=== PATIENT | female | born 1955 | race Caucasian/White ===

== ENCOUNTER 2019-09-23 12:06 | Emergency (ER) | payer BC ==
--- OUTSIDE RECORDS SUMMARY | 2019-09-23 12:48 | XMS REPORT | Continuity of Care Document ---
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 Onset: 11/17/2011 Benign essential hypertension Litzy Correa M.D. Onset: 11/17/2011 Hyperlipidemia Litzy Correa M.D. Onset: 11/17/2011 Malignant neoplasm of female breast Kasey Madrigal DO Onset: 06/03/2016 Recurrent major depressive episodes Kierra Argueta MD Onset: 07/03/2016 Other abnormal findings in urine Kierra Argueta MD Onset: 07/03/2016 Urinary tract infectious disease Kasey Madrigal DO Onset: 09/25/2016 Pruritus of vulva Kasey Madrigal DO Onset: 03/29/2017 Obesity Kierra Argueta MD Onset: 04/07/2017 Multiple skin tags on neck Kierra Argueta MD Onset: 04/07/2017 Umbilical hernia Marco Wise MD,FACS Onset: 06/30/2017 Candidiasis of skin and nails Kierra Argueta MD Onset: 08/11/2017 Acute sinusitis Kasey Madrigal DO Onset: 01/05/2018 Vitamin D deficiency Kierra Argueta MD Onset: 02/09/2018 Disorder of bursa of shoulder region Lotus Trejo PA Onset: 03/29/2018 Bicipital tenosynovitis Lotus Trejo PA Onset: 03/29/2018 Localized, primary osteoarthritis of the Lotus Trejo PA Onset: 03/29/2018 shoulder region Traumatic tear of rotator cuff Lotus Trejo PA Onset: 04/08/2018 Jaundice Marco Wise MD,FACS Onset: 04/27/2018 Other specified disorders of breast Marco Wise MD,FACS Onset: 07/15/2018 Allergic contact dermatitis due to Kierra Argueta MD Onset: 08/11/2018 adhesive Candidal vulvovaginitis Kierra Argueta MD Onset: 08/11/2018 Tear film insufficiency Kierra Argueta MD Onset: 12/12/2018 Vitamin deficiency Kasey Madrigal DO Onset: 12/12/2018 Mixed hyperlipidemia Kierra Argueta MD Onset: 04/07/2017 Social History Type Date Description Comments Sex Unknown Cigarette Use denies smoking ETOH Use Denies alcohol use Tobacco Use Start: Unknown End: Patient is a former <1/4 ppd x 1 yrs, Unknown smoker quit at age 17 Recreational Drug Use Never Used Drugs Smoking Status Reviewed: 06/12/19 Patient is a former <1/4 ppd x 1 yrs, smoker quit at age 17 Allergies, Adverse Reactions, Alerts Description No Known Drug Allergies Medications Active Medications SIG Qnty Indications Ordering Date Provider [facility] Take One Tablet By 30tabs Kierra Argueta, 12/12/2018 5mg Tablets Mouth Every Morning Nystatin apply to affected 60gm B37.2 Neelfarhat, 08/11/2017 areas 2x/day after DO Kasey [id number]/GM Powder washing and drying well Glipizide ER 1 tab by by mouth 90tabs E11.9 Kierra Argueta, 11/04/2016 5mg 1x/day this is the Tablets ER 24HR correct dose and number, really Freestyle Lite Blood check 1x/day at 1units F33.9 Kierra Argueta, 2015 Glucose Monitoring alternating times MD System E11.9 Device E11.9 Freestyle Lancets check glucose 100units Kendall, 07/03/2016 Misc 1x/day e11.9 MD Kierra Freestyle Lite Test test glu 1x/day 50units E11.9 Kendall, 07/03/2016 Strips dx: e11.9 MD Kierra Anastrozole 1 tabl by mouth 90tabs Kendall, 06/03/2016 1mg Tablets every day MD Kierra Naproxen 1 by mouth twice a 180tabs M25.522 Kendall, 03/25/2015 500mg Tablets day with food or MD Kierra snack as needed Crestor 1 by mouth every 90tabs E78.5 Kendall, 11/10/2013 40mg Tablets day MD Kierra Lisinopril 1 by mouth every 90tabs I10 Kendall, 10/27/2012 5mg Tablets day MD Kierra Hydrochlorothiazide take 1 tablet 90tabs I10 Kendall, 25mg Tablets daily MD Kierra Metformin HCL ER 3 by mouth every 270tabs E11.9 Kendall, 500mg Tablets ER in the morning MD Kierra 24HR Vitamin D 1 by mouth every Unknown 2000Unit Capsules day Silver Sulfadiazine 1 application 85gm Unknown 1% Cream topically twice a day as needed Womens Multivitamin 2 a day Unknown Tablets Systane 1 drop to eyes 4 x Unknown 0.4-0.3% Solution daily as needed History Medications Benadryl Itch apply three times a 30mg Kasey Madrigal, DO 03/13/2019 - Stopping day to affected 06/12/2019 2% Gel area Immunizations CPT Code Status Date Vaccine Lot # [id number] Given 08/11/2018 Influenza Virus Vaccine, Quadrivalent, 36 Mos+, [id number] .[id number] Given 08/11/2017 Influenza Virus Vaccine Quadrivalent Iiv4 [place] [id number] [address] Given 04/15/2017 Zoster Vaccine Live Injection 89635 Given 04/07/2017 Pneumococcal Conjugate Vaccine 13 Valent For [id number] Intramuscular Use 54643 Given 11/04/2016 Influenza Virus Vaccine Split Virus Use For [id number] Individual 3Yr Older [id number] Given 07/29/2015 Influenza Vaccine (Fluzone) Age 3 And Older [id number] 17040 Given 07/23/2014 flu vaccination 41773 Given 11/06/2013 Tdap injection 85038 Given 07/07/2013 flu vaccination 96875 Given 10/27/2012 Pneumovax Injection 66273 Given 10/27/2012 flu vaccination 43472 Given 11/17/2011 flu vaccination Vital Signs Date Vital Result Comment 09/06/2019 8:02am BP Systolic 140 mmHg BP Diastolic 56 mmHg Body Temperature 97.8 F Heart Rate 81 /min Respiratory Rate 18 /min Weight 261.38 lb O2 % BldC Oximetry 96 % Pain Level 5 shoulder and knee 06/12/2019 9:12am BP Systolic Sitting Left Arm 118 mmHg BP Diastolic Sitting Left Arm 72 mmHg Body Temperature 97.7 F Heart Rate 64 /min Respiratory Rate 18 /min Height 62.25 inches 5'2.25" Weight 262.00 lb BMI (Body Mass Index) 47.5 kg/m2 BSA (Body Surface Area) 2.15 m2 [place] body weight in kilograms 50 kg Results Test Acquired Date Facility Test Result H/L Range Note CBC 09/06/2019 [facility] White Blood 8.4 K/uL Normal 3.1-10.7 1 W/Automated [address] [place] [address] [phone] Red Blood Count 4.62 M/uL Normal 3.90-5.40 Hemoglobin 13.3 gm/dL Normal 11.6-15.8 Hematocrit 41.2 % Normal 36.0-46.1 Mean Cell Volume 89.2 fl Normal 80.9-99.0 Mean Corpuscular HGB 28.8 pg Normal 25.9-32.7 Mean Corpuscular HGB Conc 32.3 g/dL Normal 30.8-34.3 Platelet Count 281 K/uL Normal 155-360 Red Cell Distri Width SD 50.2 fl High 36-47 Red Cell Distri Width %CV 15.4 % High 11.7-14.4 Mean Platelet Volume 10.1 fl Normal 8.9-12.4 Neut% 68.1 % Normal 40.4-72.8 Lymph % 19.7 % Low 20.0-42.0 Young % 7.1 % Normal 4.3-13.2 Eo% 3.8 % Normal 0.0-6.6 Bas% 0.4 % Normal 0.0-1.1 Immature Grans 0.9 % Normal 0.0-5.0 NRBC % 0.0 /100WBC < 10/ 100 WBC Neut# 5.75 K/uL Normal 1.8-7.0 Lymph # 1.66 K/uL Normal 1.0-4.0 Young # 0.60 K/uL Normal 0.3-0.9 Eos # 0.32 K/uL Normal 0.0-0.5 Baso # 0.03 K/uL Normal 0.0-0.1 Immature Grans Absolute 0.08 K/uL NRBC # 0.00 K/uL Comprehensive Metabolic 09/06/2019 [facility] Glucose 172 mg/dL High 74-106 Panel [address] [place], [place] [id number] [phone] BUN 21 mg/dL High 7-18 Creatinine 0.8 mg/dL Normal 0.6-1.3 Glom Filtration Rate, Estimate >60 mL/min >60 If >60 mL/min >60 2 BUN/Creat 26.2 ratio Sodium 137 mmol/L Normal 136-145 Potassium 4.0 mmol/L Normal 3.5-5.1 Chloride 107 mmol/L Normal 98-107 Carbon Dioxide 26 mmol/L Normal 21-32 Anion Gap 4 mEq/L Low 8-16 Calcium 8.9 mg/dL Normal 8.5-10.1 Total Protein 7.1 g/dL Normal 6.4-8.2 Albumin 3.9 g/dL Normal 3.4-5.0 Globulin 3.2 g/dL Normal 1.9-4.3 Alb/Glob 1.2 ratio Bilirubin,Total 0.4 mg/dL Normal 0.2-1.0 Sgot/Ast 18 U/L Normal 15-37 SGPT/Alt 23 U/L Normal 12-78 Alkaline Phosphatase 118 U/L High 45-117 Iron-Tibc-%Sat 09/06/2019 [facility] Serum Iron 49 g/dL Low 50-170 [address] [place], [place] [id number] [phone] Total Iron Binding Capacity 379 g/dL Normal 250-450 Transferrin %Saturation 13 % Normal 12-57 Laboratory test 09/06/2019 [facility] Ferritin 31 ng/mL Normal 8-252 finding [address] [place] [address] [phone] Vitamin B12 And 09/06/2019 [facility] Vitamin B12 614 pg/mL Normal 193-986 Folate [address] [place], [place] [id number] [phone] Folic Acid > 20.0 ng/mL High 3.1-17.5 Laboratory test 09/06/2019 [facility] Vitamin 39.4 30.0-100.0 [address] D,25-Hydroxy ng/[place] [address] [phone] Sedimentation Rate 27 mm/hr Normal 2-45 4 Urine Dipstick 06/12/2019 [facility] Ua Leuko - Negative Ua Nitrite - Negative Ua Urobilinogen .2 0.2 - 1.0 E.U./dL Ua Protein - Negative Ua PH 6 Low 6.5-7.5 Ua Blood - Negative Ua Specific [place] 1.020 1.010-1.030 Ua Ketones - Negative Ua Bilirubin - Negative Ua Glucose 3+ High Negative CBS W/Automated 06/09/2019 [facility] White Blood 7.0 K/uL Normal 3.1-10.7 [address] [place] [address] [phone] Red Blood Count 4.45 M/uL Normal 3.90-5.40 Hemoglobin 12.7 gm/dL Normal 11.6-15.8 Hematocrit 38.9 % Normal 36.0-46.1 Mean Cell Volume 87.4 fl Normal 80.9-99.0 Mean Corpuscular HGB 28.5 pg Normal 25.9-32.7 Mean Corpuscular HGB Conc 32.6 g/dL Normal 30.8-34.3 Platelet Count 228 K/uL Normal 155-360 Red Cell Distri Width SD 49.0 fl High 36-47 Red Cell Distri Width %CV 15.4 % High 11.7-14.4 Mean Platelet Volume 10.1 fl Normal 8.9-12.4 Neut% 65.2 % Normal 40.4-72.8 Lymph % 21.7 % Normal 20.0-42.0 Young % 6.8 % Normal 4.3-13.2 Eo% 5.2 % Normal 0.0-6.6 Bas% 0.4 % Normal 0.0-1.1 Immature Grans 0.7 % Normal 0.0-5.0 NRBC % 0.0 /100WBC < 10/ 100 WBC Neut# 4.53 K/uL Normal 1.8-7.0 Lymph # 1.51 K/uL Normal 1.0-4.0 Young # 0.47 K/uL Normal 0.3-0.9 Eos # 0.36 K/uL Normal 0.0-0.5 Baso # 0.03 K/uL Normal 0.0-0.1 Immature Grans Absolute 0.05 K/uL NRBC # 0.00 K/uL Comprehensive Metabolic 06/09/2019 [facility] Glucose 156 mg/dL High 74-106 Panel [address] [place] [address] [phone] BUN 15 mg/dL Normal 7-18 Creatinine 0.8 mg/dL Normal 0.6-1.3 Glom Filtration Rate, Estimate >60 mL/min >60 If >60 mL/min >60 6 BUN/Creat 18.7 ratio Sodium 139 mmol/L Normal 136-145 Potassium 4.0 mmol/L Normal 3.5-5.1 Chloride 106 mmol/L Normal 98-107 Carbon Dioxide 29 mmol/L Normal 21-32 Anion Gap 4 mEq/L Low 8-16 Calcium 9.0 mg/dL Normal 8.5-10.1 Total Protein 6.9 g/dL Normal 6.4-8.2 Albumin 3.7 g/dL Normal 3.4-5.0 Globulin 3.2 g/dL Normal 1.9-4.3 Alb/Glob 1.2 ratio Bilirubin,Total 0.5 mg/dL Normal 0.2-1.0 Sgot/Ast 13 U/L Low 15-37 7 SGPT/Alt 25 U/L Normal 12-78 Alkaline Phosphatase 105 U/L Normal 45-117 Vitamin B12 And 06/09/2019 [facility] Vitamin B12 667 pg/mL Normal 193-986 Folate [address] [place] [address] [phone] Folic Acid > 20.0 ng/mL High 3.1-17.5 Laboratory test 06/09/2019 [facility] Vitamin 44.0 30.0-100.0 8 finding [address],25-Hydroxy ng/[place] [address] [phone] Ferritin 34 ng/mL Normal 8-252 Iron-Tibc-%Sat 06/09/2019 [facility] Serum Iron 52 g/dL Normal 50-170 [address] [place] [address] [phone] Total Iron Binding Capacity 353 g/dL Normal 250-450 Transferrin %Saturation 15 % Normal 12-57 Glycohemoglobin 06/09/2019 [facility] Glycohemoglobin 7.8 % High 4.2-6.3 9 A1c [address] (A1c) [place] [address] [phone] eAG 177 mg/dL 1 C50.912 E11.9 E56.9 2 Note: Persistent reduction for 3 months or more in an eGFR <60 mL/min/1.73 m2 defines CKD. Patients with eGFR values >/=60 mL/min/1.73 m2 may also have CKD if evidence of persistent proteinuria is present. The original MDRD equation for estimated GFR is not valid for patients less than 18 years of age. Additional information may be found at www.kdoqi.org. 3 Vitamin D deficiency has been defined by the [employer] of [employer] and an Endocrine Society practice guideline as a level of serum 25-OH vitamin D less than 20 ng/mL (1,2). The Endocrine Society went on to further define vitamin D insufficiency as a level between 21 and 29 ng/mL (2). 1. IOM ([employer] of [employer]). 2010. Dietary reference intakes for calcium and D. [place]: The National Academies Press. 2. Temo MF, Thanh NC, Sharon REED, et al. Evaluation, treatment, and prevention of vitamin D deficiency: an Endocrine Society clinical practice guideline. JCEM. 2010; 96(7):1911-30. Performed at: RN - [facility] [address] [id number] [employer] Consultant: Tami Freitas MD, Phone: [phone] This result was obtained with an ESR method that is not based on the standard Westergren Method. When comparing results obtained from the traditional Westergren ESR and this method it is important to refer to the reference range for each method. Method: Capillary Photometry 5 C50.912 R17 E11.9 6 Note: Persistent reduction for 3 months or more in an eGFR <60 mL/min/1.73 m2 defines CKD. Patients with eGFR values >/=60 mL/min/1.73 m2 may also have CKD if evidence of persistent proteinuria is present. The original MDRD equation for estimated GFR is not valid for patients less than 18 years of age. Additional information may be found at www.kdoqi.org. 7 Values below the stated reference ranges of AST and ALT can be seen in normal populations. Clinical correlation is suggested. 8 Vitamin D deficiency has been defined by the [employer] and an Endocrine Society practice guideline as a level of serum 25-OH vitamin D less than 20 ng/mL (1,2). The Endocrine Society went on to further define vitamin D insufficiency as a level between 21 and 29 ng/mL (2). 1. IOM ([employer] of [employer]). 2010. Dietary reference intakes for calcium and D. [place]: The National Academies Press. 2. eTmo MF, Thanh RIGGS, Sharon REED, et al. Evaluation, treatment, and prevention of vitamin D deficiency: an Endocrine Society clinical practice guideline. JCEM. 2010; 96(7):1911-30. Performed at: RN - [facility] [address] [id number] [employer] Consultant: Tami Freitas MD, Phone: [phone] 9 Elevated levels of HbA1c suggest the need for more aggressive treatment of glycemia. The [place] [employer] recommends that a primary goal of therapy should be a HbA1c of <7% and that physicians should re-evaluate the treatment regimen in patients with HbA1c values consistently >8%. Procedures Date Code Description Status 08/11/2018 262537875 Diabetic Foot Exam Completed 04/16/2018 46279571 Mammogram Completed 04/07/2017 475766873 Bone Mineral Density Test Completed Medical Devices Description No Information Available Encounters Type Date Location Provider Dx Diagnosis Office Visit 06/12/2019 Family Medicine Kierra Argueta, E11.9 Type 2 diabetes 9:00a Ramy CRUZ MD mellitus without complications C50.912 Malignant neoplasm of unspecified site of left female breast B37.2 Candidiasis of skin and nail Office Visit 06/05/2019 3:00p Oncology Office Rohan, C50.912 Malignant Kasey, DO neoplasm of unspecified site of left female breast E56.9 Vitamin deficiency, unspecified Office Visit 03/13/2019 8:30a Oncology Office Rohan, C50.912 Malignant Kasey, DO neoplasm of unspecified site of left female breast Assessments Date Code Description Provider 09/06/2019 C50.912 Malignant neoplasm of unspecified site of Boufal, Kasey, DO left female breast 09/06/2019 E56.9 Vitamin deficiency, unspecified Boufal, Kasey, DO 09/06/2019 L29.2 Pruritus of vulva Boufal, Kasey, DO 06/12/2019 E11.9 Type 2 diabetes mellitus without Kierra Argueta MD complications 06/12/2019 C50.912 Malignant neoplasm of unspecified site of Kierra Argueta MD left female breast 06/12/2019 B37.2 Candidiasis of skin and nail Kierra Argueta MD 06/09/2019 C50.912 Malignant neoplasm of unspecified site of Boufal, Kasey, DO left female breast 06/09/2019 C50.912 Malignant neoplasm of unspecified site of Oncology Nurse left female breast 06/09/2019 R17 Unspecified jaundice Boufal, Kasey, DO 06/09/2019 R17 Unspecified jaundice Oncology Nurse 06/09/2019 E11.9 Type 2 diabetes mellitus without Boufal, Kasey, DO complications 06/09/2019 E11.9 Type 2 diabetes mellitus without Oncology Nurse complications 06/05/2019 C50.912 Malignant neoplasm of unspecified site of Boufal, Kasey, DO left female breast 06/05/2019 E56.9 Vitamin deficiency, unspecified Boufal, Kasey, DO 03/13/2019 C50.912 Malignant neoplasm of unspecified site of Boufal, Kasey, DO left female breast Plan of Treatment Future Appointment(s):10/20/2019 9:00 am - Kierra Argueta MD at [facility] RD Functional Status Functional Condition Comment Date Status Glasses Active Complete upper dentures Active Mental Status Description No Information Available Referrals Description No Information Available
[2019-09-23 13:11] VITALS: BP 112/57
--- NOTE | 2019-09-23 13:27 | UC ---
Ear Complaint HPI - HPI Summary HPI Summary: Pt presents with c/o worsening nasal congestion, sinus pressure, bilateral ear pain, cough and upper chest congestion, X 8 days. - History of Current Complaint Chief Complaint: UCRespiratory Stated Complaint: SINUS, EAR COMPLAINT Time Seen by Provider: 09/23/19 12:51 Hx Obtained From: Patient ?: No Onset/Duration: Gradual Onset, Lasting Days, Still Present Severity Initially: Mild Severity Currently: Moderate Pain Intensity: 5 Associated Signs/Symptoms: Positive: URI Symptoms - Allergies/Home Medications Allergies/Adverse Reactions: Allergies Allergy/AdvReac Type Severity Reaction Status Date / Time No Known Allergies Allergy Verified 09/23/19 12:54 Home Medications: Home Medications Anastrozole [Arimidex] 1 mg PO DAILY 09/23/19 [History Confirmed 09/23/19] Cholecalciferol TAB* [Vitamin D TAB*] 2,000 units PO DAILY 09/23/19 [History Confirmed 09/23/19] Dapagliflozin Propanediol [Farxiga] 5 mg PO DAILY 09/23/19 [History Confirmed ] Hydrochlorothiazide TAB* [Hydrodiuril TAB*] 25 mg PO DAILY 09/23/19 [History Confirmed 09/23/19] Lisinopril TAB* [Prinivil TAB 5 MG*] 5 mg PO DAILY 09/23/19 [History Confirmed 09/23/19] Multivitamin [Multivitamins] 1 cap PO DAILY 09/23/19 [History Confirmed 09/23/19 ] Naproxen [Naproxen 500 mg tab] 500 mg PO BID PRN 09/23/19 [History Confirmed ] Nystatin TOP POWDER* 1 applic TOPICAL BID 09/23/19 [History Confirmed 09/23/19] Propylene Glycol/Peg 400/Pf [Systane Ultra 0.4-0.3% Eye Drp] 1 each OP 09/23/19 [History] Rosuvastatin Calcium [Crestor] 40 mg PO DAILY 09/23/19 [History Confirmed ] Silver Sulfadiazine 1%* [SILVadine 1%*] 1 applic TOPICAL DAILY PRN 09/23/19 [ History Confirmed 09/23/19] glipiZIDE [Glipizide ER] 5 mg PO DAILY 09/23/19 [History Confirmed 09/23/19] metFORMIN* [Glucophage 500 MG TAB *] 1,500 mg PO DAILY 09/23/19 [History Confirmed 09/23/19] PMH/Surg Hx/FS Hx/Imm Hx Previously Healthy: Yes - Surgical History Surgical History: Yes Surgery Procedure, Year, and Place: left breast lumpectomy. pylonidal cyst - Family History Known Family History: Positive: Cardiac Disease - Social History Occupation: Retired Lives: With Family Alcohol Use: None Substance Use Type: None Smoking Status (MU): Never Smoked Tobacco Have You Smoked in the Last Year: No - Immunization History Vaccination Up to Date: Yes Review of Systems All Other Systems Reviewed And Are Negative: Yes Constitutional: Positive: Chills, Fatigue Skin: Positive: Negative Eyes: Positive: Negative ENT: Positive: Ear Ache, Nasal Discharge, Sinus Congestion Respiratory: Positive: Cough Cardiovascular: Positive: Negative Gastrointestinal: Positive: Negative Genitourinary: Positive: Negative Motor: Positive: Negative Neurovascular: Positive: Negative Musculoskeletal: Positive: Negative Neurological: Positive: Negative Psychological: Positive: Negative Is Patient Immunocompromised?: No Physical Exam Triage Information Reviewed: Yes Appearance: Ill-Appearing Vital Signs: Initial Vital Signs Temp 98 F 09/23/19 13:03 Pulse 71 09/23/19 13:03 Resp 18 09/23/19 13:03 BP 112/57 09/23/19 13:03 Pulse Ox 100 09/23/19 13:03 Vital Signs Reviewed: Yes Eye Exam: Normal ENT: Positive: Nasal congestion, TM bulging, TM red Dental Exam: Normal Neck exam: Normal Respiratory: Positive: No respiratory distress, Wheezing Cardiovascular Exam: Normal Musculoskeletal Exam: Normal Neurological Exam: Normal Psychological Exam: Normal Skin Exam: Normal Ear Complaint Course/Dx - Differential Dx/Diagnosis Differential Diagnosis/HQI/PQRI: Otitis Media, Pharyngitis, URI Provider Diagnosis: Otitis media in diseases classified elsewhere, bilateral Discharge ED - Sign-Out/Discharge Documenting (check all that apply): Patient Departure All imaging exams completed and their final reports reviewed: No Studies - Discharge Plan Condition: Stable Disposition: HOME Prescriptions: Amoxicillin PO (*) [Amoxicillin 875 MG (*)] 875 mg PO Q12H #20 tab Fluconazole 150 MG TAB* [Diflucan 150 MG TAB*] 150 mg PO ONCE #2 tablet Patient Education Materials: Ear Infection (ED) Referrals: Kierra Argueta MD [Primary Care Provider] - If Needed - Billing Disposition and Condition Condition: STABLE Disposition: Home
== END 2019-09-23 13:37 | disposition home or self-care (01) ==
LOC: UCCORT 12:06
DX: H66.93 Otitis media, unspecified, bilateral (principal); J34.89 Other specified disorders of nose and nasal sinuses; R05 Cough; R53.83 Other fatigue
CPT/HCPCS: 99201; G0463

== ENCOUNTER 2019-11-18 13:00 | Emergency (ER) | payer BC ==
--- OUTSIDE RECORDS SUMMARY | 2019-11-18 13:12 | XMS REPORT | Continuity of Care Document ---
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 Problems Active Problems Provider Date Type 2 [...] Vitamin deficiency Kasey Madrigal DO Onset: 12/12/2018 Vitamin B deficiency Kasey Madrigal DO Onset: 09/25/2019 Iron deficiency Kasey Madrigal DO Onset: 09/25/2019 Mixed hyperlipidemia Kierra Argueta MD Onset: 04/07/2017 [...] Medications SIG Qnty Indications Ordering Date Provider [facility] Take One Tablet By 30tabs Kierra Argueta, 12/12/2018 5mg Tablets Mouth Every Morning Nystatin apply to affected 60gm B37.2 Rohan, 08/11/2017 areas 2x/day after DO Kasey [id number]/GM Powder washing and drying well Glipizide ER 1 tab by by mouth 90tabs E11.9 Kierra Argueta, 11/04/2016 5mg 1x/day this is the MD Tablets ER 24HR correct dose and number, really Freestyle Lite Blood check 1x/day at 1units F33.9 Kierra Argueta, 2015 Glucose Monitoring alternating times MD System E11.9 Device E11.9 Freestyle Lancets check glucose 100units Kendall 07/03/2016 Misc 1x/day e11.9 MD Kierra Freestyle [...] x Unknown 0.4-0.3% Solution daily as needed Amoxicillin 1 tab by mouth Unknown 875mg Tablets twice a day Immunizations CPT Code Status Date Vaccine Lot # 11521 Given 08/11/2018 Influenza Virus Vaccine, Quadrivalent, 36 Mos+, [id number] .[id number] 26798 Given 08/11/2017 Influenza Virus Vaccine Quadrivalent Iiv4 [place] [id number] [address] Given 04/15/2017 Zoster Vaccine Live Injection 75474 Given 04/07/2017 Pneumococcal Conjugate Vaccine 13 Valent For [id number] Intramuscular Use 07987 Given 11/04/2016 Influenza Virus Vaccine Split Virus Use For [id number] Individual 3Yr Older Q2038 Given 07/29/2015 Influenza Vaccine (Fluzone) Age 3 And Older [id number] 14138 Given 07/23/2014 flu vaccination 60327 Given 11/06/2013 Tdap injection 64961 Given 07/07/2013 flu vaccination 64224 Given 10/27/2012 Pneumovax Injection 84176 Given 10/27/2012 flu vaccination 73583 Given 11/17/2011 flu vaccination Vital Signs Date Vital Result Comment 09/25/2019 12:28pm BP Systolic 194 mmHg BP Diastolic 62 mmHg Body Temperature 97.9 F Heart Rate 73 /min Respiratory Rate 18 /min Weight 258.25 lb O2 % BldC Oximetry 96 % Pain Level 5 double ear infection. 09/06/2019 8:02am BP Systolic 140 mmHg BP Diastolic 56 mmHg Body Temperature 97.8 F Heart Rate 81 /min Respiratory Rate 18 /min Weight 261.38 lb O2 % BldC Oximetry 96 % Pain Level 5 shoulder and knee Results Test Acquired Date Facility Test Result H/L Range Note CBC 09/06/2019 [facility] White Blood 8.4 K/uL Normal 3.1-10.7 1 W/Automated [address] [place] [address] [phone] Red Blood Count 4.62 M/uL Normal 3.90-5.40 [...] 40.4-72.8 Lymph % 19.7 % Low 20.0-42.0 [place] % 7.1 % Normal 4.3-13.2 Eo% 3.8 % Normal 0.0-6.6 Bas% 0.4 % Normal 0.0-1.1 Immature Grans 0.9 % Normal 0.0-5.0 NRBC % 0.0 /100WBC < 10/ 100 WBC Neut# 5.75 K/uL Normal 1.8-7.0 Lymph # 1.66 K/uL Normal 1.0-4.0 [place] # 0.60 K/uL Normal 0.3-0.9 Eos # 0.32 K/uL Normal 0.0-0.5 Baso # 0.03 K/uL Normal 0.0-0.1 Immature Grans Absolute 0.08 K/uL NRBC # 0.00 K/uL Comprehensive Metabolic 09/06/2019 [facility] Glucose 172 mg/dL High 74-106 Panel [address] [place], [place] [id number] [phone] BUN 21 mg/dL High 7-18 Creatinine 0.8 [...] Phosphatase 118 U/L High 45-117 Iron-Tibc-%Sat 09/06/2019 [facility] Serum Iron 49 g/dL Low 50-170 [address] [place], [place] [id number] [phone] Total Iron Binding Capacity 379 g/dL Normal 250-450 Transferrin %Saturation 13 % Normal 12-57 Laboratory test 09/06/2019 [facility] Ferritin 31 ng/mL Normal 8-252 finding [address] [place], [place] [id number] [phone] Vitamin B12 And 09/06/2019 [facility] Vitamin B12 614 pg/mL Normal 193-986 Folate [address] [place] [address] [phone] Folic Acid > 20.0 ng/mL High 3.1-17.5 Laboratory test 09/06/2019 [facility] Vitamin 39.4 30.0-100.0 [address] D,25-Hydroxy ng/[place] [address] [phone] Sedimentation Rate 27 mm/hr Normal 2-45 4 Urine Dipstick 06/12/2019 [facility] Ua Leuko - Negative Ua Nitrite - Negative Ua Urobilinogen .2 0.2 - 1.0 E.U./dL Ua Protein - Negative Ua PH 6 Low 6.5-7.5 Ua Blood - Negative Ua Specific [place] 1.020 1.010-1.030 Ua Ketones - Negative Ua Bilirubin - Negative Ua Glucose 3+ High Negative CBS W/Automated 06/09/2019 [facility] White Blood 7.0 K/uL Normal 3.1-10.7 [address] [place] [address] [phone] Red Blood Count 4.45 M/uL Normal 3.90-5.40 [...] 40.4-72.8 Lymph % 21.7 % Normal 20.0-42.0 [place] % 6.8 % Normal 4.3-13.2 Eo% 5.2 % Normal 0.0-6.6 Bas% 0.4 % Normal 0.0-1.1 Immature Grans 0.7 % Normal 0.0-5.0 NRBC % 0.0 /100WBC < 10/ 100 WBC Neut# 4.53 K/uL Normal 1.8-7.0 Lymph # 1.51 K/uL Normal 1.0-4.0 [place] # 0.47 K/uL Normal 0.3-0.9 Eos # 0.36 K/uL Normal 0.0-0.5 Baso # 0.03 K/uL Normal 0.0-0.1 Immature Grans Absolute 0.05 K/uL NRBC # 0.00 K/uL Comprehensive Metabolic 06/09/2019 [facility] Glucose 156 mg/dL High 74-106 Panel [address] [place] [address] [phone] BUN 15 mg/dL Normal 7-18 Creatinine 0.8 [...] U/L Normal 45-117 Vitamin B12 And 06/09/2019 [facility] Vitamin B12 667 pg/mL Normal 193-986 Folate [address] [place], [place] [address] [phone] Folic Acid > 20.0 ng/mL High 3.1-17.5 Laboratory test 06/09/2019 [facility] Vitamin 44.0 30.0-100.0 8 finding [address] D,25-Hydroxy ng/[place] [address] [phone] Ferritin 34 ng/mL Normal 8-252 Iron-Tibc-%Sat 06/09/2019 [facility] Serum Iron 52 g/dL Normal 50-170 [address] [place] [address] [phone] Total Iron Binding Capacity 353 g/dL Normal 250-450 Transferrin %Saturation 15 % Normal 12-57 Glycohemoglobin 06/09/2019 [facility] Glycohemoglobin 7.8 % High 4.2-6.3 9 A1c [address] (A1c) [place] [address] [phone] eAG 177 mg/dL 1 C50.912 E11.9 E56.9 [...] D deficiency has been defined by the [place] of [employer] and an Endocrine Society practice guideline as a level of serum 25-OH vitamin D less than 20 ng/mL (1,2). The Endocrine Society went on to further define vitamin D insufficiency as a level between 21 and 29 ng/mL (2). 1. IOM ([place] of [employer]). 2010. Dietary reference intakes for calcium and D. [place]: The National Academies Press. 2. Temo MF, Thanh NC, Beto-Arturo REED, et al. Evaluation, treatment, and prevention of vitamin D deficiency: an Endocrine Society clinical practice guideline. JCEM. 2010; 96(7):1911-30. Performed at: RN - [facility] [address] [id number] Financial Services Specialist: Tami Freitas MD, Phone: [phone] This result was obtained with an [...] D deficiency has been defined by the [place] of [employer] and an Endocrine Society practice guideline as a level of serum 25-OH vitamin D less than 20 ng/mL (1,2). The Endocrine Society went on to further define vitamin D insufficiency as a level between 21 and 29 ng/mL (2). 1. IOM ([place] [employer]). 2010. Dietary reference intakes for calcium and D. [place]: The National AcademVERTILAS Press. 2. Temo MF, Thanh NC, Sharon REED, et al. Evaluation, treatment, and prevention of vitamin D deficiency: an Endocrine Society clinical practice guideline. JCEM. 2010; 96(7):1911-30. Performed at: RN - [facility] [address] [id number] Financial Services Specialist: Tami Freitas MD, Phone: [phone] Elevated levels of HbA1c suggest the need for more aggressive treatment of glycemia. The [place] Diabetes Association recommends that a primary goal of therapy should be a HbA1c of <7% and that physicians should re-evaluate the treatment regimen in patients with HbA1c values consistently >8%. Procedures Date Code Description Status 08/11/2018 [id number] Diabetic Foot Exam Completed 04/16/2018 [id number] Mammogram Completed 04/07/2017 [id number] Bone Mineral Density Test Completed Medical Devices Description No Information Available Encounters Type Date Location Provider Dx Diagnosis Office Visit 09/06/2019 Oncology Office Rohan, C50.912 Malignant neoplasm 8:00a Kasey, DO of unspecified site of left female breast E56.9 Vitamin deficiency, unspecified L29.2 Pruritus vulvae Office Visit 06/12/2019 9:00a Family Medicine Kierra Argueta, E11.9 Type 2 diabetes Ramy CRUZ MD mellitus without complications C50.912 Malignant neoplasm of unspecified site of left female breast B37.2 Candidiasis of skin and nail Office Visit 06/05/2019 3:00p Oncology Office Rohan, C50.912 Malignant Kasey, DO neoplasm of unspecified site of left female breast E56.9 Vitamin deficiency, unspecified Assessments Date Code Description Provider 09/25/2019 C50.912 Malignant neoplasm of unspecified site of Boufal, Kasey, DO left female breast 09/25/2019 E53.9 Vitamin B deficiency, unspecified Boufal, Kasey, DO 09/25/2019 E55.9 Vitamin D deficiency, unspecified Boufal, Kasey, DO 09/25/2019 E61.1 Iron deficiency Boufal, Kasey, DO 09/25/2019 L29.2 Pruritus of vulva Boufal, Kasey, DO 09/25/2019 M19.012 Primary osteoarthritis, left shoulder Boufal, Kasey, DO 09/06/2019 C50.912 Malignant neoplasm of unspecified site [...] E56.9 Vitamin deficiency, unspecified Boufal, Kasey, DO Plan of Treatment Future Appointment(s):01/02/2020 10:30 am - Boufal, Kasey, DO at Oncology [id number]/26/2019 10:30 am - Oncology Nurse at Oncology Xprrio6910/20/2019 9:00 am - Kierra Argueta MD at [facility] [address] Functional Status Functional Condition Comment Date Status Glasses Active Complete upper dentures Active Mental Status Description No Information Available Referrals Description No Information Available
--- OUTSIDE RECORDS SUMMARY | 2019-11-18 13:12 | XMS REPORT | Continuity of Care Document ---
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 Problems Active Problems Provider Date Malignant neoplasm of female breast Kasey Ferris DO Onset: 06/03/2016 Recurrent major depressive episodes Kierra Argueta MD Onset: 07/03/2016 Obesity Kierra Argueta MD Onset: 04/07/2017 Multiple skin tags on neck Kierra Argueta MD Onset: 04/07/2017 Umbilical hernia Marco Wise MD,FACS Onset: 06/30/2017 Vitamin D deficiency Kierra Argueta MD Onset: 02/09/2018 Localized, primary osteoarthritis of the [place] PA Onset: 03/29/2018 shoulder region Tear film insufficiency Kierra Argueta MD Onset: 12/12/2018 Vitamin B deficiency Kasey Ferris DO Onset: 09/25/2019 Iron deficiency Kasey Ferris DO Onset: 09/25/2019 Mixed hyperlipidemia Kierra Argueta MD Onset: 04/07/2017 Hyperlipidemia Kierra Argueta MD Onset: 10/20/2019 Essential hypertension Kierra Argueta MD Onset: 10/20/2019 Type II diabetes mellitus uncontrolled Kierra Argueta MD Onset: 10/20/2019 Pure hypercholesterolemia Kierra Argueta MD Onset: 10/20/2019 Social History Type Date Description Comments Sex Unknown Cigarette Use denies smoking ETOH Use Denies alcohol use Tobacco Use Start: Unknown End: Patient is a former <1/4 ppd x 1 yrs, Unknown smoker quit at age 17 Recreational Drug Use Never Used Drugs Smoking Status Reviewed: 10/20/19 Patient is a former <1/4 ppd x 1 yrs, smoker quit at age 17 Allergies, Adverse Reactions, Alerts Description No Known Drug Allergies Medications Active Medications SIG Qnty Indications Ordering Date Provider Isac 1 by mouth every 90tabs Kierra Argueta, 10/20/2019 10mg Tablets day Fluconazole 1 by mouth once a 30tabs B37.3 Kierra Argueta, 08/11/2018 100mg day for 4d for MD Tablets oli infection Nystatin apply to affected 60gm B37.2 Boufal, 08/11/2017 areas 2x/day after Kasey, [place] [id number]/GM Powder washing and drying well Glipizide ER 1 tab by by mouth 90tabs E11.9 Kierra Argueta, 11/04/2016 5mg 1x/day MD Tablets ER 24HR Freestyle Lite Blood check 1x/day at 1units [...] Tablets daily MD Kierra Metformin HCL ER 2 by mouth every 180tabs E11.9 Kendall, 500mg Tablets ER in the morning MD Kierra 24HR Vitamin D 1 by mouth every Unknown 2000Unit Capsules day Silver Sulfadiazine 1 application 85gm Unknown 1% Cream topically twice a day as needed Womens Multivitamin 2 a day Unknown Tablets Systane 1 drop to eyes 4 x Unknown 0.4-0.3% Solution daily as needed Immunizations CPT Code Status Date Vaccine Lot # 47710 Given 10/20/2019 Influenza High Dose [id number] 07237 Given 08/11/2018 Influenza Virus Vaccine, Quadrivalent, 36 Mos+, [id number] .5ML 25105 Given 08/11/2017 Influenza Virus Vaccine Quadrivalent Iiv4 [place] [id number] [address] Given 04/15/2017 Zoster Vaccine Live Injection 71163 Given 04/07/2017 Pneumococcal Conjugate Vaccine 13 Valent For [id number] Intramuscular Use 42623 Given 11/04/2016 Influenza Virus Vaccine Split Virus Use For [id number] Individual 3Yr Older Q2038 Given 07/29/2015 Influenza Vaccine (Fluzone) Age 3 And Older [id number] 10477 Given 07/23/2014 flu vaccination 79520 Given 11/06/2013 Tdap injection 19557 Given 07/07/2013 flu vaccination 07026 Given 10/27/2012 Pneumovax Injection 89064 Given 10/27/2012 flu vaccination 54234 Given 11/17/2011 flu vaccination Vital Signs Date Vital Result Comment 10/20/2019 9:10am BP Systolic 128 mmHg BP Diastolic 82 mmHg Body Temperature 97.7 F Heart Rate 78 /min Respiratory Rate 16 /min Weight 258.25 lb O2 % BldC Oximetry 98 % 09/25/2019 12:28pm BP Systolic 194 mmHg BP Diastolic 62 mmHg Body Temperature 97.9 F Heart Rate 73 /min Respiratory Rate 18 /min Weight 258.25 lb Pain Level 5 double ear infection. O2 % BldC Oximetry 96 % Results Test Acquired Date Facility Test Result H/L Range Note CBC 09/06/2019 [facility] White Blood 8.4 K/uL Normal 3.1-10.7 1 W/Automated [address] Count Diff [place], [place] [address] [phone] Red Blood Count 4.62 M/uL Normal 3.90-5.40 [...] 40.4-72.8 Lymph % 19.7 % Low 20.0-42.0 [place] % 7.1 % Normal 4.3-13.2 Eo% 3.8 % Normal 0.0-6.6 Bas% 0.4 % Normal 0.0-1.1 Immature Grans 0.9 % Normal 0.0-5.0 NRBC % 0.0 /100WBC < 10/ 100 WBC Neut# 5.75 K/uL Normal 1.8-7.0 Lymph # 1.66 K/uL Normal 1.0-4.0 [place] # 0.60 K/uL Normal 0.3-0.9 Eos # 0.32 K/uL Normal 0.0-0.5 Baso # 0.03 K/uL Normal 0.0-0.1 Immature Grans Absolute 0.08 K/uL NRBC # 0.00 K/uL Comprehensive Metabolic 09/06/2019 [facility] Glucose 172 mg/dL High 74-106 Panel [address] [place] [address] [phone] BUN 21 mg/dL High 7-18 Creatinine 0.8 [...] Phosphatase 118 U/L High 45-117 Iron-Tibc-%Sat 09/06/2019 [facility] Serum Iron 49 g/dL Low 50-170 [address] [place] [address] [phone] Total Iron Binding Capacity 379 g/dL Normal 250-450 Transferrin %Saturation 13 % Normal 12-57 Laboratory test 09/06/2019 [facility] Ferritin 31 ng/mL Normal 8-252 finding [address] [place] [address] [phone] Vitamin B12 And 09/06/2019 [facility] Vitamin B12 614 pg/mL Normal 193-986 Folate [address] [place] [address] [phone] Folic Acid > 20.0 ng/mL High 3.1-17.5 Laboratory test 09/06/2019 [facility] Vitamin 39.4 30.0-100.0 3 finding [address] D,25-Hydroxy ng/[place] [address] [phone] Sedimentation Rate 27 mm/hr Normal 2-45 4 Urine Dipstick 06/12/2019 [facility] Ua Leuko - Negative Ua Nitrite - Negative Ua Urobilinogen .2 0.2 - 1.0 E.U./dL Ua Protein - Negative Ua PH 6 Low 6.5-7.5 Ua Blood - Negative Ua Specific [place] 1.020 1.010-1.030 Ua Ketones - Negative Ua Bilirubin - Negative Ua Glucose 3+ High Negative CBS W/Automated 06/09/2019 [facility] White Blood 7.0 K/uL Normal 3.1-10.7 [address] [place] [address] [phone] Red Blood Count 4.45 M/uL Normal 3.90-5.40 [...] 40.4-72.8 Lymph % 21.7 % Normal 20.0-42.0 [place] % 6.8 % Normal 4.3-13.2 Eo% 5.2 % Normal 0.0-6.6 Bas% 0.4 % Normal 0.0-1.1 Immature Grans 0.7 % Normal 0.0-5.0 NRBC % 0.0 /100WBC < 10/ 100 WBC Neut# 4.53 K/uL Normal 1.8-7.0 Lymph # 1.51 K/uL Normal 1.0-4.0 [place] # 0.47 K/uL Normal 0.3-0.9 Eos # 0.36 K/uL Normal 0.0-0.5 Baso # 0.03 K/uL Normal 0.0-0.1 Immature Grans Absolute 0.05 K/uL NRBC # 0.00 K/uL Comprehensive Metabolic 06/09/2019 [facility] Glucose 156 mg/dL High 74-106 Panel [address] [place] [address] [phone] BUN 15 mg/dL Normal 7-18 Creatinine 0.8 [...] U/L Normal 45-117 Vitamin B12 And 06/09/2019 [facility] Vitamin B12 667 pg/mL Normal 193-986 Folate [address] [place] [address] [phone] Folic Acid > 20.0 ng/mL High 3.1-17.5 Laboratory test 06/09/2019 [facility] Vitamin 44.0 30.0-100.0 [address] D,25-Hydroxy ng/[place] [address] [phone] Ferritin 34 ng/mL Normal 8-252 Iron-Tibc-%Sat 06/09/2019 [facility] Serum Iron 52 g/dL Normal 50-170 [address] [place] [address] [phone] Total Iron Binding Capacity 353 g/dL Normal 250-450 Transferrin %Saturation 15 % Normal 12-57 Glycohemoglobin 06/09/2019 [facility] Glycohemoglobin 7.8 % High 4.2-6.3 9 A1c [address] [facility] (A1c) [place] [address] [phone] eAG 177 mg/dL 1 C50.912 E11.9 E56.9 [...] D deficiency has been defined by the [place] of [employer] and an Endocrine Society practice guideline as a level of serum 25-OH vitamin D less than 20 ng/mL (1,2). The Endocrine Society went on to further define vitamin D insufficiency as a level between 21 and 29 ng/mL (2). 1. IOM ([place] of [employer]). 2010. Dietary reference intakes for calcium and D. [place]: The National Academies Press. 2. Thanh Elizalde, Sharon REED, et al. Evaluation, treatment, and prevention of vitamin D deficiency: an Endocrine Society clinical practice guideline. JCEM. 2010; 96(7):1911-. Performed at: [address] [id number] [employer] Set Up Operator: Tami Freitas MD, Phone: [phone] This result was obtained with an [...] D deficiency has been defined by the [place] of [employer] and an Endocrine Society practice guideline as a level of serum 25-OH vitamin D less than 20 ng/mL (1,2). The Endocrine Society went on to further define vitamin D insufficiency as a level between 21 and 29 ng/mL (2). 1. IOM ([place] of [employer]). 2010. Dietary reference intakes for calcium and D. [place]: The National Academies Press. 2. Thanh Elizalde, Sharon REED, et al. Evaluation, treatment, and prevention of vitamin D deficiency: an Endocrine Society clinical practice guideline. JCEM. 2010; 96(7):1911-30. Performed at: [facility] [id number] [employer] Set Up Operator: Tami Freitas MD, Phone: [phone] Elevated levels of HbA1c suggest the need for more aggressive treatment of glycemia. The [place] Diabetes Association recommends that a primary goal of therapy should be a HbA1c of <7% and that physicians should re-evaluate the treatment regimen in patients with HbA1c values consistently >8%. Procedures Date Code Description Status 08/11/2019 [id number] Diabetic Foot Exam Completed 04/16/2019 [id number] Mammogram Completed 04/07/2019 [id number] Bone Mineral Density Test Completed Medical Devices Description No Information Available Encounters Type Date Location Provider Dx Diagnosis Office Visit 10/20/2019 Family Medicine Kierra Argueta, Z00.00 Encntr for general 9:00a Ramy CRUZ MD adult medical exam w/o abnormal findings E11.65 Type 2 diabetes mellitus with hyperglycemia I10 Essential (primary) hypertension C50.912 Malignant neoplasm of unspecified site of left female breast E78.5 Hyperlipidemia, unspecified L91.8 Other hypertrophic disorders of the skin Office Visit 09/25/2019 12:30p Oncology Office Boufal, C50.912 Malignant Kasey, DO neoplasm of unspecified site of left female breast E53.9 Vitamin B deficiency, unspecified E55.9 Vitamin D deficiency, unspecified E61.1 Iron deficiency M19.012 Primary osteoarthritis, left shoulder Office Visit 09/06/2019 8:00a Oncology Office Boufal, C50.912 Malignant Kasey, DO neoplasm of unspecified site of left female breast E56.9 Vitamin deficiency, unspecified L29.2 Pruritus vulvae Office Visit 06/12/2019 9:00a Family Medicine Kierra Argueta, E11.9 Type 2 diabetes Ramy CRUZ MD mellitus without complications C50.912 Malignant neoplasm of unspecified site of left female breast B37.2 Candidiasis of skin and nail Office Visit 06/05/2019 3:00p Oncology Office Boufal, C50.912 Malignant Kasey, DO neoplasm of unspecified site of left female breast E56.9 Vitamin deficiency, unspecified Assessments Date Code Description Provider 10/20/2019 Z00.00 Encounter for general adult medical Kierra Argueta MD examination without abnormal findings 10/20/2019 E11.65 Type 2 diabetes mellitus with hyperglycemia Kierra Argueta MD 10/20/2019 I10 Essential (primary) hypertension Kierra Argueta MD 10/20/2019 C50.912 Malignant neoplasm of unspecified site of Kierra Argueta MD left female breast 10/20/2019 E78.5 Hyperlipidemia, unspecified Kierra Argueta MD 10/20/2019 L91.8 Other hypertrophic disorders of the skin Kierra Argueta MD 09/25/2019 C50.912 Malignant neoplasm of unspecified site of Boufal, Kasey, DO left female breast 09/25/2019 E53.9 Vitamin B deficiency, unspecified Boufal, Kasey, DO 09/25/2019 E55.9 Vitamin D deficiency, unspecified Boufal, Kasey, DO 09/25/2019 E61.1 Iron deficiency Boufal, Kasey, DO 09/25/2019 M19.012 Primary osteoarthritis, [...] Boufal, Kasey, DO Plan of Treatment Future Appointment(s):02/19/2020 4:00 pm - Kierra [facility]gueta MD at [facility]01/02/2020 10:30 am - Kasey Ferris DO at Oncology [id number] 10:30 am - Oncology Nurse at Oncology [id number]/20/2019 - Kierra Argueta MDZ00.00 Encounter for general adult medical examination without abnormal findingsComments:REGULAR EXERCISE IS IMPORTANT FOR YOU; TRY TO LOSE SOME MORE WEIGHT;DAILY SUNSCREEN OR COVER UP TO AVOID SKIN CANCER;CALCIUM INTAKE IS GOOD; COLON CA SCREENING , LABS, MAMMOGRAM AND BONE DENSITY DATES IN PREVENTIVE SCREEN.IMMUNIZATIONS : FLU SHOT TODAY; I AM CALLING IN SHINKasumi-sou.LABS UP TO DATE EXCEPT WHAT I ORDERED TODAY;HEALTH CARE PROXY IN CHART.ADL'S, IADL'S: YOU ARE SAFE AT HOME. SIGN UP FOR THEPORTAL, THIS IS A GREAT WAY TO SEE YOUR RESULTS, CONTACT ME AND MAKE APPOINTMENTS OR ASK QUESTIONS..E11.65 Type 2 diabetes mellitus with hyperglycemiaComments:AIC AND URINE FOR PROTEIN LOSS ORDERED TODAY.DECREASE METFORMIN TO 500 MG, 2 IN AM;INCREASE FARXIGA TO 10 MG IN AM, CALLED IN;CONTINUE GLIPIZIDE ONCE A DAY.Follow up:4 MOI10 Essential (primary) hypertensionComments:WATCH SALT; CONT. WITH SAME MEDICAL REGIME;REGULAR EXERCISE IS AMARAL.C50.912 Malignant neoplasm of unspecified site of left female breastComments:YOU ARE FOLLOWED CLOSELY BY DR. FERRIS; CONTINUE ANASTROZOLE.E78.5 Hyperlipidemia, unspecifiedComments:CONTINUE SAME DOSE, CHOLESTEROL IS GOOD.WATCH SATURATED FATS AND RED MEAT INTAKE;GET ADEQUATE FIBER IN DIET.L91.8 Other hypertrophic disorders of the skinComments:multiple skin tags; will schedule for electrocautery excisionFollow up:needs appt for multiple skin tag removal, 30 min.AllNew Medication:Farxiga 10 mg - 1 by mouth every day Functional Status Functional Condition Comment Date Status Glasses Active Independent with all ADL's Active Complete upper dentures Active Requires assistance with all IADL's Active Mental Status Description No Information Available Referrals Description No Information Available
[2019-11-18 13:40] VITALS: BP 128/59
--- NOTE | 2019-11-18 13:52 | UC ---
Laceration HPI - HPI Summary HPI Summary: 64 yo female presents with RIGHT pinky laceration. She tells me that just [employer] she was opening a metal can and the tin can sliced her right 5th finger. Bandaged the area and came directly to . States tetanus is UTD. - History Of Current Complaint Chief Complaint: UCLaceration Stated Complaint: RIGHT PINKY LACERATION Time Seen by Provider: 11/18/19 13:52 Hx Obtained From: Patient Laceration Location: Finger Mechanism Of Injury: Sharp Trauma Onset/Duration: Sudden Onset Severity: Mild Pain Intensity: 4 Pain Scale Used: 0-10 Numeric - Allergies/Home Medications Allergies/Adverse Reactions: Allergies Allergy/AdvReac Type Severity Reaction Status Date / Time No Known Allergies Allergy Verified 11/18/19 13:34 PMH/Surg Hx/FS Hx/Imm Hx Endocrine History: Diabetes, Dyslipidemia Cardiovascular History: Hypertension - Surgical History Surgical History: Yes Surgery Procedure, Year, and Place: left breast lumpectomy. pylonidal cyst - Family History Known Family History: Positive: Cardiac Disease - Social History Lives: With Family Alcohol Use: None Substance Use Type: None Smoking Status (MU): Former Smoker Have You Smoked in the Last Year: No When Did the Patient Quit Smoking/Using Tobacco: 1969 - Immunization History Most Recent Tetanus Shot: UTD Vaccination Up to Date: Yes Review of Systems All Other Systems Reviewed And Are Negative: No Constitutional: Positive: Negative Skin: Positive: Other - Right 5th digit laceration Respiratory: Positive: Negative Cardiovascular: Positive: Negative Neurovascular: Positive: Negative Musculoskeletal: Positive: Negative Neurological: Positive: Negative Psychological: Positive: Negative Physical Exam - Summary Physical Exam Summary: GENERAL: NAD. WDWN. No pain distress. SKIN: RIGHT 5th digit: dorsal aspect overlying the PIP there is a 2.0cm flap- like laceration. No bony or tendon involvement appreciated. NECK: Supple. Nontender. No lymphadenopathy. CHEST: No accessory muscle use. Breathing comfortably and in no distress. CV: Pulses intact. Cap refill <2seconds MSK: FROM and strength intact MCP, PIP, and DIP of right 5th digit. NEURO: Alert. PSYCH: Age appropriate behavior. Triage Information Reviewed: Yes Vital Signs: Initial Vital Signs Temp 97.6 F 11/18/19 13:37 Pulse 77 11/18/19 13:37 Resp 17 11/18/19 13:37 BP 128/59 11/18/19 13:37 Pulse Ox 99 11/18/19 13:37 Vital Signs Reviewed: Yes Laceration Repair - Laceration Repair 1 Description: Irregular Laceration Size After Repair: Length (cm) - 2.0 Modified For Repair: No Anesthesia Used: 2.0% Lido Irrigation With Pressure Irrigation Device: Yes Closure Material: Sutures - #7 Closure Method: Single Layer Suture Of: Skin Suture Type: Prolene - 5-0 Laceration Course/Dx - Course/Dx Course Of Treatment: The procedure was explained to the pt and all questions were answered. A time out was performed, witnessed, and signed. The area was irrigated with 200mL sterile saline. 2mL of 2% lidocaine without epi was administered and good anesthetization was achieved. In the usual sterile fashion, SEVEN 5-0 prolene interrupted sutures were placed. Homeostasis achieved. The wound was bandaged with telfa and tubegauze. Pt tolerated procedure well. She was provided with a finger splint to use when she removed the tubegauze in 24-48hrs. Rx for keflex given her finger laceration and diabetes. - Diagnosis Provider Diagnosis: Finger laceration Discharge ED - Sign-Out/Discharge Documenting (check all that apply): Patient Departure All imaging exams completed and their final reports reviewed: No Studies - Discharge Plan Condition: Stable Disposition: HOME Prescriptions: Cephalexin CAP* [Keflex CAP*] 500 mg PO TID #15 cap Patient Education Materials: Finger Laceration (ED) Referrals: Kierra Argueta MD [Primary Care Provider] - Additional Instructions: 1) Please keep the area bandage, clean, dry, and intact for the next 24- 48hours. Then change the bandage daily until sutures are removed. 2) If you develop a fever, colored or thick discharge, increased pain or swelling - please call your PCP or return for a wound check. 3) Please return in 10-12 days to have your SEVEN sutures removed. 4) Use the finger splint as much as possible to keep from bending the finger - Billing Disposition and Condition Condition: STABLE Disposition: Home - Attestation Statements Provider Attestation: Per institutional requirements, I have reviewed the chart, however, I was not consulted specifically or made aware of this patient by the midlevel provider. I did not personally evaluate, interact with, or disposition this patient. EK
[2019-11-18] MEDS ORDERED: Lidocaine 2% PF * 5 ML VIAL INJ ONE (13:55)
== END 2019-11-18 14:56 | disposition home or self-care (01) ==
LOC: UCCORT 13:00
DX: S61.216A Laceration without foreign body of right little finger without damage to nail, initial encounter (principal); W45.8XXA Other foreign body or object entering through skin, initial encounter; Y92.9 Unspecified place or not applicable; E11.9 Type 2 diabetes mellitus without complications; I10 Essential (primary) hypertension; Z87.891 Personal history of nicotine dependence
CPT/HCPCS: 12001; 12002; 99211; G0463

== ENCOUNTER 2019-11-29 10:21 | Emergency (ER) | payer BC ==
[2019-11-29 11:19] VITALS: BP 122/60
--- NOTE | 2019-11-29 11:47 | UC ---
HPI Wound/Suture Re-check - HPI Summary HPI Summary: here for suture removal from the right pinky sutures were placed here 11 days ago has no concerns, no bleeding, no pain, no redness or discharge wound is healing well - History Of Current Complaint Chief Complaint: UCSkin Stated Complaint: STITCH REMOVAL-DONE HERE Time Seen by Provider: 11/29/19 11:19 Hx Obtained From: Patient Onset/Duration: Sudden Onset, Lasting Days - 11, Still Present Severity: Moderate Pain Intensity: 0 Pain Scale Used: 0-10 Numeric Procedure Type: suture removal Surgery Date: 11/18/19 - Allergies/Home Medications Allergies/Adverse Reactions: Allergies Allergy/AdvReac Type Severity Reaction Status Date / Time No Known Allergies Allergy Verified 11/29/19 11:19 PMH/Surg Hx/FS Hx/Imm Hx Endocrine History: Diabetes Cardiovascular History: Hypertension Cancer History: Breast Cancer - Surgical History Surgical History: Yes Surgery Procedure, Year, and Place: left breast lumpectomy. pylonidal cyst - Family History Known Family History: Positive: Cardiac Disease - Social History Alcohol Use: None Substance Use Type: None Smoking Status (MU): Former Smoker Have You Smoked in the Last Year: No When Did the Patient Quit Smoking/Using Tobacco: 1970 - Immunization History Most Recent Tetanus Shot: UTD Vaccination Up to Date: Yes Review of Systems All Other Systems Reviewed And Are Negative: Yes Constitutional: Positive: Negative Is Patient Immunocompromised?: No Physical Exam Triage Information Reviewed: Yes Appearance: Well-Appearing, No Pain Distress, Well-Nourished Vital Signs: Initial Vital Signs Temp 97.4 F 11/29/19 11:14 Pulse 69 11/29/19 11:14 Resp 18 11/29/19 11:14 BP 122/60 11/29/19 11:14 Pulse Ox 100 11/29/19 11:14 Vital Signs Reviewed: Yes Eye Exam: Normal Eyes: Positive: Conjunctiva Clear ENT: Positive: Normal ENT inspection, Hearing grossly normal, Pharynx normal Neck exam: Normal Respiratory: Positive: Chest non-tender, Lungs clear, Normal breath sounds Cardiovascular: Positive: RRR, No Murmur, Pulses Normal Skin: Positive: Other - 2 cm laceration right pinky , sutures are intact, wound is healing well , no erythema, no dischare, to tenderness, sutures were removed Course/Dx - Diagnosis Provider Diagnosis: Visit for suture removal Discharge ED - Sign-Out/Discharge Documenting (check all that apply): Patient Departure All imaging exams completed and their final reports reviewed: No Studies - Discharge Plan Condition: Stable Disposition: HOME Patient Education Materials: Stitches Removal (ED) Referrals: Kierra Argueta MD [Primary Care Provider] - If Needed Additional Instructions: may keep the band aid for 2 more days use antibiotic oint daily after your have removed the band aid follow up as needed - Billing Disposition and Condition Condition: STABLE Disposition: Home
== END 2019-11-29 11:38 | disposition home or self-care (01) ==
LOC: UCCORT 10:21
DX: S61.216D Laceration without foreign body of right little finger without damage to nail, subsequent encounter (principal); E11.9 Type 2 diabetes mellitus without complications; I10 Essential (primary) hypertension; Z85.3 Personal history of malignant neoplasm of breast; Z87.891 Personal history of nicotine dependence; X58.XXXD Exposure to other specified factors, subsequent encounter

== ENCOUNTER 2020-01-06 18:11 | Emergency (ER) | payer BC, OTHER ==
[2020-01-06 19:11] VITALS: BP 135/66
--- NOTE | 2020-01-06 19:49 | UC ---
Knee Pain HPI - HPI Summary HPI Summary: Patient is 64 year old female, who present today to the urgent care with left knee pain for past 3 days. She reports that she was at work and sustained injury at 3:00 in morning , she was coming down the steps and stepped on black ice. Slipped on black ice on 01/03 and twisted left knee. Has continued to work, applying ice. Takes naproxen for pain but took ibuprofen this morning . Wednesday put salonpas on it. Painful with activity. Medial knee pain. Reports associated swelling - History of Current Complaint Chief Complaint: UCLowerExtremity Stated Complaint: LEFT KNEE INJURY (wc) Time Seen by Provider: 01/06/20 19:10 Hx Obtained From: Patient ?: No Pain Intensity: 0 - Allergies/Home Medications Allergies/Adverse Reactions: Allergies Allergy/AdvReac Type Severity Reaction Status Date / Time No Known Allergies Allergy Verified 01/06/20 19:11 Home Medications: Home Medications Anastrozole [Arimidex] 1 mg PO DAILY 09/23/19 [History Confirmed 01/06/20] Cholecalciferol TAB* [Vitamin D TAB*] 2,000 units PO DAILY 09/23/19 [History Confirmed 01/06/20] Dapagliflozin Propanediol [Farxiga] 10 mg PO DAILY 09/23/19 [History Confirmed 01/06/20] Hydrochlorothiazide TAB* [Hydrodiuril TAB*] 25 mg PO DAILY 09/23/19 [History Confirmed 01/06/20] Lisinopril TAB* [Prinivil TAB 5 MG*] 5 mg PO DAILY 09/23/19 [History Confirmed 01/06/20] Multivitamin [Multivitamins] 1 cap PO DAILY 09/23/19 [History Confirmed 01/06/20 ] Naproxen [Naproxen 500 mg tab] 500 mg PO BID PRN 09/23/19 [History Confirmed ] Rosuvastatin Calcium [Crestor] 40 mg PO DAILY 09/23/19 [History Confirmed ] glipiZIDE [Glipizide ER] 5 mg PO DAILY 09/23/19 [History Confirmed 01/06/20] metFORMIN* [Glucophage 500 MG TAB *] 1,000 mg PO DAILY 09/23/19 [History Confirmed 01/06/20] Diclofenac 1% GEL (NF) [Voltaren 1% GEL (NF)] 1 applic TOPICAL BID 7 Days #1 tube 01/06/20 [Rx] Ibuprofen TAB* [Motrin TAB* 400 MG] 400 mg PO Q6H PRN 01/06/20 [History Confirmed 01/06/20] PMH/Surg Hx/FS Hx/Imm Hx - Additional Past Medical History Additional PMH: Past Medical History : Hyperlipidemia, hypertension, diabetes, breast cancer, hepatitis Past Surgical History: Left breast lumpectomy, pilonidal cyst Family History : cardiac disease Social History : no alcohol, former smoker, no drug use. works at [employer]. Previously Healthy: Yes - Surgical History Surgical History: Yes Surgery Procedure, Year, and Place: left breast lumpectomy. pylonidal cyst - Family History Known Family History: Positive: Cardiac Disease - Social History Alcohol Use: None Substance Use Type: None Smoking Status (MU): Former Smoker Have You Smoked in the Last Year: No When Did the Patient Quit Smoking/Using Tobacco: 1969 - Immunization History Most Recent Tetanus Shot: UTD Vaccination Up to Date: Yes Review of Systems All Other Systems Reviewed And Are Negative: Yes Constitutional: Positive: Negative Skin: Positive: Negative Eyes: Positive: Negative ENT: Positive: Negative Respiratory: Positive: Negative Cardiovascular: Positive: Negative Gastrointestinal: Positive: Negative Genitourinary: Positive: Negative Motor: Positive: Negative Neurovascular: Positive: Negative Musculoskeletal: Positive: Arthralgia - left knee, Decreased ROM Neurological/Mental Status: Positive: Negative Psychological: Positive: Negative Is Patient Immunocompromised?: No Physical Exam - Summary Physical Exam Summary: Vital Signs Reviewed: Yes A+Ox3, no distress Eyes: Conjunctiva Clear ENT: Hearing grossly normal neck: supple Respiratory: Positive: No respiratory distress, No accessory muscle use Cardiovascular: skin color reflect adequate perfusion Neurological: Positive: Alert, ambulatory without difficulty Psychological: Positive: Normal Response To Family Skin: Positive: no rash, no ecchymosis Gait: Walks with a antalgic gait. Left Knee: Insp/Palp: No deformity. Alignment neutral. Mild effusion. Tenderness of the medial joint line Strength: Quadriceps 5/5 , No hamstring tightness. ROM: Limited and painful , 0-90 Special Tests: limited testing due to pain Triage Information Reviewed: Yes Vital Signs: Initial Vital Signs Temp 97.1 F 01/06/20 19:07 Pulse 77 01/06/20 19:07 Resp 16 01/06/20 19:07 BP 135/66 01/06/20 19:07 Pulse Ox 99 01/06/20 19:07 Vital Signs Reviewed: Yes Diagnostics - Radiology No standard instances Radiology Interpretation Completed By: ED Physician - Left knee Xray: Moderate to severe medial and patellofemoral osteoarthritis Knee Pain Course/Dx - Course Course Of Treatment: Left knee Xray: Moderate to severe medial and patellofemoral osteoarthritis I reviewed the x-rays with her and symptoms appear to be consistent with left knee osteoarthritis flare. We discussed further treatment options and alternatives including pain control with NSAIDs/Tylenol and topical Voltaren gel. We also discussed the option of corticosteroid injection today but she she declines it. We discussed about follow up with orthopedics. She has seen Dr. Cardoso in past for her shoulder and wants to see him. - Differential Dx/Diagnosis Provider Diagnosis: Osteoarthritis of left knee Discharge ED - Sign-Out/Discharge Documenting (check all that apply): Patient Departure All imaging exams completed and their final reports reviewed: No - Discharge Plan Condition: Stable Disposition: HOME Prescriptions: Diclofenac 1% GEL (NF) [Voltaren 1% GEL (NF)] 1 applic TOPICAL BID 7 Days #1 tube Patient Education Materials: Osteoarthritis (ED) Referrals: Kierra Argueta MD [Primary Care Provider] - Navya Cardoso MD [Medical Doctor] - 2 Days Additional Instructions: Please start using the topical medication as prescribed to the pharmacy . Your x-rays were done after 6 PM and no official radiology read is available at this time . X-rays will be read tomorrow morning by radiologist and if anything different, somebody will call you with the findings and further plan. Naproxen as needed for pain control. Follow up with orthopedics for further management. Patients blood pressure slightly high in Urgent care today , plan follow up with PCP for better control within 4 weeks Return to Urgent care / ER if symptoms get worse. - Billing Disposition and Condition Condition: STABLE Disposition: Home
--- NOTE | 2020-01-07 11:45 | UC ---
- Progress Note Progress Note: No change in treatment plan. Mold Sheet Cleaner: Jean-Pierre Mathew, ([id number]) Rental Clerk Tool And Equipment: PORTIA (PORTIA) Report Date: 01/07/2020 09:04:00 Report Status: Final Start of Report Content Patient Name: RON GAO Medical Record#: [id number] Ordering Physician: Ruben Bolden MD Acct.#: [id number] : 1954 Age: 64 Sex: F Location: [facility] Exam Date: 01/06/201938 ADM Status: [facility] ER Order Information: KNEE LEFT 4+ VWS Accession Number: [id number] CPT: 93907 INDICATION: Left knee pain since a twisting injury January 03, 2020 COMPARISON: None TECHNIQUE: 4 view radiograph of the left knee. FINDINGS: The visualized bones are well-corticated and properly aligned. Degenerative changes include narrowing of the joint spaces on the AP view worse at the medial compartment relative to the lateral compartment. There is marginal osteophyte formation also worse adjacent to the medial compartment. There is narrowing of the patellofemoral joint with superior and inferior pole osteophyte formation. On the sunrise view patellofemoral joint space narrowing is again demonstrated and there is exuberant marginal osteophyte formation along the medial margin of the joint. There is no radiographic evidence of joint effusion. There is no acute fracture, dislocation or other focal bony abnormality. IMPRESSION: Moderate to advanced degenerative changes of the left knee without radiographically apparent acute abnormality. If the patient's symptoms persist, follow-up imaging is recommended. R0 Preliminary Imaging Read R0 <Electronically signed by Jean-Pierre Mathew MD in OV> 01/07/20900 Dictated By: Jean-Pierre Mathew MD Dictated Date/Time: 01/07/20858 Transcribed Date/Time: 01/07/20858 Copy to: CC:Ruben Bolden MD; Kierra Argueta MD Imaging - [facility] Imaging - [facility] Imaging - [facility] [address] [address] ph [phone]) ph [phone]) ph [phone]) End of Report Content ==== Course/Dx - Diagnoses Provider Diagnoses: Osteoarthritis of left knee Discharge ED - Sign-Out/Discharge Documenting (check all that apply): Post-Discharge Follow Up All imaging exams completed and their final reports reviewed: Yes - Discharge Plan Condition: Stable Disposition: HOME Prescriptions: Diclofenac 1% GEL (NF) [Voltaren 1% GEL (NF)] 1 applic TOPICAL BID 7 Days #1 tube Patient Education Materials: Osteoarthritis (ED) Referrals: Navya Cardoso MD [Medical Doctor] - 2 Days Kierra Argueta MD [Primary Care Provider] - Additional Instructions: Please start using the topical medication as prescribed to the pharmacy . Your x-rays were done after 6 PM and no official radiology read is available at this time . X-rays will be read tomorrow morning by radiologist and if anything different, somebody will call you with the findings and further plan. Naproxen as needed for pain control. Follow up with orthopedics for further management. Patients blood pressure slightly high in Urgent care today , plan follow up with PCP for better control within 4 weeks Return to Urgent care / ER if symptoms get worse. - Billing Disposition and Condition Condition: STABLE Disposition: Home
== END 2020-01-06 20:20 | disposition home or self-care (01) ==
LOC: UCCORT 18:11
DX: M17.12 Unilateral primary osteoarthritis, left knee (principal); I10 Essential (primary) hypertension; E11.9 Type 2 diabetes mellitus without complications; E78.5 Hyperlipidemia, unspecified; Z85.3 Personal history of malignant neoplasm of breast; Z87.891 Personal history of nicotine dependence; Z79.899 Other long term (current) drug therapy; Z79.84 Long term (current) use of oral hypoglycemic drugs
CPT/HCPCS: 99212; G0463